=== PATIENT | female | born 1935 | race Caucasian/White ===

== ENCOUNTER 2017-02-18 16:55 | Inpatient (IN) | payer MEDICARE, MEDICAID ==
[~2017-02-18] VITALS: Ht 170.2 cm; Wt 61.2 kg
[2017-02-18 16:40] VITALS: BP 162/64
--- NOTE | 2017-02-18 16:45 | NUR ---
RECEIVED PATIENT 81 YEARS OLD FEMALE FROM [facility] BY [facility]/AMBULANCE WITH BILATERAL WRIST RESTRAINTS PATIENT IS AWAKE CONFUSED AND DISORIENTED REFUSED TO SIGN ANY OF THE ADMISSION PAPERS ORIENTED TO THE UNIT AND ITS PROTOCOL.PATIENT SEATED ON THE CHAIR DR MAYER WAS CALLED BY THE RADIO OFFICER RE THE PRN PSYCH ORDERS AND DOCUMENTED.CALLED PATIENTS SON LINETTE AND LEFT HIM A MESSAGE RE PATIENT IS HERE.
--- NOTE | 2017-02-18 17:30 | NUR ---
LINETTE RETURNED CALL AND WAS NOTIFIED THAT HIS MOM IS HERE AND HE STATED WILL CALL HIS MOM LATER TO TALK WITH HER.PATIENT IS MORE COOPERATIVE WITH THE ADMISSION NURSE ANSWERING QUESTIONS EATING DINNER AND ADMISSION PROCESS REMAINS IN PROGRESS AND WILL CONTINUE TO OBSERVE AND PROVIDE SAFE AND THERAPEUTIC ENVIRONMENT AT ALL TIMES.
[2017-02-18] MEDS ORDERED: MAGNESIUM HYDROXIDE 30 ML LIQUID UDC PO PRN (17:45)
[2017-02-18] MEDS ORDERED: MAG HYDROX/AL HYDROX/SIMETH 30 ML LIQUID UDC PO PRN (17:45)
[2017-02-18] MEDS ORDERED: LISI-603 PO (17:52)
[2017-02-18] MEDS ORDERED: FERR325T6 PO (17:52)
[2017-02-18] MEDS ORDERED: OXYB5TAB PO (17:52)
[2017-02-18] MEDS ORDERED: ALBU2.5V38 NEB ×2 (17:52→23:58)
[2017-02-18] MEDS ORDERED: METO25TA6 PO (17:52)
[2017-02-18] MEDS ORDERED: ASPI-605 PO (17:52)
[2017-02-18] MEDS ORDERED: CLOP75TA15 PO (17:52)
[2017-02-18] MEDS ORDERED: ALBUTEROL SULFATE 2.5 MG/3 ML NEBU NEB PRN (20:15)
[2017-02-18 20:46] VITALS: BP 153/78
[2017-02-18] MEDS ORDERED: NIFE90TA2 PO (20:54)
[2017-02-18] MEDS ORDERED: MIRT15TA PO (20:54)
[2017-02-18] MEDS ORDERED: SITA100T PO (20:54)
[2017-02-18] MEDS ORDERED: FERR325T28 PO (20:54)
[2017-02-18] MEDS ORDERED: OXYB5TAB11 PO (20:54)
[2017-02-18] MEDS ORDERED: CLON0.1T PO (20:54)
[2017-02-18] MEDS ORDERED: CLONIDINE HCL 0.1 MG TABLET PO PRN (21:15)
[2017-02-18] MEDS ORDERED: FAMO20TA41 PO (21:18)
[2017-02-18] MEDS: TEMAZEPAM 7.5 MG CAPSULE PO PRN (21:26)
[2017-02-18] MEDS: ACETAMINOPHEN 325 MG TABLET PO PRN (21:26)
[2017-02-18] MEDS: METOPROLOL TARTRATE 25 MG TABLET PO SCH (21:27)
[2017-02-18] MEDS: LISINOPRIL 20 MG TABLET PO SCH (21:27)
--- NOTE | 2017-02-18 21:30 | NUR ---
Patient was given Restoril 7.5mg PO PRN for insomnia and Tylenol 650mg PO PRN for pain. we will continue to monitor
--- NOTE | 2017-02-18 22:00 | NUR ---
patient noted crying in her bed. she stated that she is feelings sad because she is not supposed to be here, but in [place]. She also denies being aggressive toward a nurse staff from [facility]. Verbal redirection was given. we will continue to monitor.
[2017-02-18] MEDS: LORAZEPAM 0.5 MG TABLET PO PRN (23:30)
--- NOTE | 2017-02-18 23:30 | NUR ---
patient continue c/o unable to sleep. She was also noted with anxious mood. Ativan 0.5mg PO PRN was given for anxiety. verbal redirection was given. we will continue to monitor.
[2017-02-18] MEDS ORDERED: ZOLP5TAB2 PO (23:58)
[2017-02-18] MEDS ORDERED: CLON0.5T PO (23:58)
[2017-02-18] MEDS ORDERED: BISA10SU61 RC (23:58)
[2017-02-18] MEDS ORDERED: NA P133E RC (23:58)
[2017-02-19] MEDS: ACETAMINOPHEN 325 MG TABLET PO PRN (03:48)
[2017-02-19 07:30] VITALS: BP 162/87
[2017-02-19] MEDS ORDERED: BISACODYL 10 MG SUPP.RECT RC PRN (07:30)
[2017-02-19] MEDS ORDERED: FLEET ENEMA 133 ML BOTTLE RC PRN (07:30)
[2017-02-19] MEDS: CLOPIDOGREL 75 MG TABLET PO SCH (08:51)
[2017-02-19] MEDS: OXYBUTYNIN CHLORIDE 5 MG TABLET PO SCH ×2 (08:51→17:04)
[2017-02-19] MEDS: ASPIRIN EC 81 MG TABLET.DR PO SCH (08:51)
[2017-02-19] MEDS: LISINOPRIL 20 MG TABLET PO SCH (08:51)
[2017-02-19] MEDS: METOPROLOL TARTRATE 25 MG TABLET PO SCH ×2 (08:52→20:12)
[2017-02-19] MEDS: LINAGLIPTIN 5 MG TABLET PO SCH (08:53)
[2017-02-19] MEDS ORDERED: OXYBUTYNIN XL 5 MG TABSR PO SCH (09:00)
[2017-02-19] MEDS: FERROUS SULFATE 325 MG TABEC PO SCH ×2 (09:00→17:00)
[2017-02-19] MEDS: NIFEdipine XL 90 MG TABSR PO SCH (09:00)
[2017-02-19] MEDS ORDERED: FERROUS SULFATE 325 MG TABEC PO SCH (09:00)
[2017-02-19 09:08] LABS: CREATININE 2.5 mg/dL (0.6-1.3)
--- NOTE | 2017-02-19 11:49 | NUR ---
Initial DC Plan: Patient arrived from [facility] [[address] [place] [address]; [phone]]. SW will follow up with facility to confirm pt will be accepted back upon discharge. SW will follow up with MD, patient, and pt's family to discuss appropriate discharge plans. SW will form a safe and proper discharge.
[2017-02-19 11:54] LABS: *BILIRUBIN,URIN NEGATIVE (NEGATIVE); *BLOOD, URINE Trace-lysed (NEGATIVE); *CLARITY,URINE CLEAR (CLEAR); *COLOR,URINE LIGHT YELLOW (YELLOW); *KETONES,URINE NEGATIVE (NEGATIVE); *PROTEIN,URINE 2+ (NEGATIVE); *UROBILINOGEN,URINE 0.2 E.U./dl (NORMAL); LEUKOCYTE ESTERASE ,URINE TRACE (NEGATIVE); NITRITE, URINE NEGATIVE (NEGATIVE); UGLUCOSE NEGATIVE (NEGATIVE)
[2017-02-19] MEDS: AMLODIPINE 5 MG TABLET PO SCH (12:00)
[2017-02-19] MEDS ORDERED: SULFAMETH/TRIMETH 800/160 MG TABLET PO SCH (12:00)
[2017-02-19 12:08] LABS: BACTERIA,URINE MODERATE /HPF (NONE SEEN); SQUAMOUS EPITHELIAL CELL,UR FEW /HPF (NONE SEEN); WBC,URINE 20-50 /HPF (0-3)
[2017-02-19] MEDS ORDERED: HYDROCODONE/APAP 5-325MG TABLET PO PRN ×2 (12:15)
[2017-02-19 12:55] LABS: CARBON DIOXIDE 23 mmol/L (21-32); CHLORIDE 106 mmol/L (98-107); CREATININE 2.4 mg/dL (0.6-1.3); GLUCOSE 102 mg/dL (74-106); POTASSIUM 4.2 mmol/L (3.5-5.1); UREA NITROGEN, BLOOD 45 mg/dL (7-18)
[2017-02-19] MEDS: SULFAMETH/TRIMETH 800/160 MG TABLET PO SCH ×2 (12:58→20:18)
[2017-02-19] MEDS: hydrALAZINE HCL 10 MG TABLET PO SCH ×2 (13:06→22:00)
[2017-02-19] MEDS: ALBUTEROL SULFATE 2.5 MG/3 ML NEBU NEB SCH ×2 (13:30→18:49)
[2017-02-19 15:00] VITALS: BP 149/88
[2017-02-19 20:40] VITALS: BP 159/76
[2017-02-19] MEDS ORDERED: ARIPIPRAZOLE 2 MG TABLET PO SCH (21:00)
[2017-02-19] MEDS ORDERED: MIRTAZAPINE 15 MG TABLET PO SCH (21:00)
--- NOTE | 2017-02-19 22:00 | NUR ---
received to care, lying in bed, isolative, but pleasant upon approach. compliant with most medications, except bactrim, for UTI, and her 2199 dose, of hydralazine. potential risks of noncompliance was discussed, but she stated, "good. maybe i will ", although she denies SI, or desire to harm self, at this time. as of 2199, she appears to be asleep. in bed. monitored closely for safety. no distress noted. will continue to monitor closely.
[2017-02-20] MEDS: ALBUTEROL SULFATE 2.5 MG/3 ML NEBU NEB SCH ×4 (00:42→18:45)
[2017-02-20] MEDS: hydrALAZINE HCL 10 MG TABLET PO SCH ×3 (06:00→21:07)
--- NOTE | 2017-02-20 06:00 | NUR ---
slept 7.5 hours, total. remains in bed. refused AM hydralazine. states she wants to sleep. no distress noted. will continue to monitor closely.
[2017-02-20 07:30] VITALS: BP 157/96
[2017-02-20] MEDS: FAMOTIDINE 20 MG TABLET PO SCH (07:30)
[2017-02-20] MEDS ORDERED: FAMOTIDINE 20 MG TABLET PO SCH (07:30)
[2017-02-20 07:53] LABS: ALANINE AMINOTRANSFERASE 10 U/L (14-59); ALKALINE PHOSPHATASE 55 U/L (50-136); ASPARTATE AMINOTRANSFERASE 13 U/L (15-37); BILIRUBIN,TOTAL 0.5 mg/dL (0.2-1.0); CARBON DIOXIDE 22 mmol/L (21-32); CHLORIDE 107 mmol/L (98-107); CREATINE KINASE, TOTAL 28 U/L (26-192); CREATININE 2.4 mg/dL (0.6-1.3); GLUCOSE 96 mg/dL (74-106); MAGNESIUM 2.1 mg/dL (1.8-2.4); PHOSPHOROUS 4.7 mg/dL (2.5-4.9); POTASSIUM 4.2 mmol/L (3.5-5.1); TOTAL PROTEIN, SERUM 7.4 g/dL (6.4-8.2); UREA NITROGEN, BLOOD 40 mg/dL (7-18)
[2017-02-20 07:54] LABS: BASOPHILS % (AUTO) 0.9 % (0.0-2.0); EOSINOPHILS # (AUTO) 0.2 K/uL (0.0-0.7); EOSINOPHILS % (AUTO) 4.9 % (0.0-7.0); HEMATOCRIT 29.3 % (31.2-41.9); HEMOGLOBIN 9.9 g/dL (10.9-14.3); LYMPHOCYTES # (AUTO) 0.7 K/uL (20.0-40.0); LYMPHOCYTES % (AUTO) 16.3 % (20.5-51.5); MEAN CORPUSCULAR HEMOGLOBIN 27.2 uug (24.7-32.8); MEAN CORPUSCULAR HGB CONC 34 g/dL (32.3-35.6); MEAN CORPUSCULAR VOLUME 80.7 fL (75.5-95.3); MONOCYTES # (AUTO) 0.5 K/uL (2.0-10.0); MONOCYTES % (AUTO) 10.9 % (0.0-11.0); NEUTROPHILS # (AUTO) 3.1 K/uL (1.8-8.9); PLATELET COUNT (AUTO) 175 K/uL (179-408); RED BLOOD CELL COUNT(AUTO) 3.63 MIL/uL (3.63-4.92); WHITE BLOOD COUNT (AUTO) 4.6 K/uL (3.8-11.8)
[2017-02-20] MEDS: OXYBUTYNIN CHLORIDE 5 MG TABLET PO SCH ×2 (09:00→17:00)
[2017-02-20] MEDS: METOPROLOL TARTRATE 25 MG TABLET PO SCH ×2 (09:00→21:00)
[2017-02-20] MEDS: FERROUS SULFATE 325 MG TABEC PO SCH ×2 (09:00→17:00)
[2017-02-20] MEDS: SULFAMETH/TRIMETH 800/160 MG TABLET PO SCH ×2 (09:00→21:00)
[2017-02-20] MEDS: ASPIRIN EC 81 MG TABLET.DR PO SCH (09:00)
[2017-02-20] MEDS: AMLODIPINE 5 MG TABLET PO SCH (09:00)
[2017-02-20] MEDS: CLOPIDOGREL 75 MG TABLET PO SCH (09:00)
[2017-02-20] MEDS: LINAGLIPTIN 5 MG TABLET PO SCH (09:00)
[2017-02-20] MEDS: NIFEdipine XL 90 MG TABSR PO SCH (09:00)
--- NOTE | 2017-02-20 09:07 | NUR ---
offered am medications to patient but strongly refused dispite of the explanations and stated " I don't want any medications... I don't want any medications."
[2017-02-20 16:24] VITALS: BP 158/87
--- NOTE | 2017-02-20 16:35 | NUR ---
PT HAS BEEN VERBALLY INSULTING AND THREATENED A STAFF MEMBER. PTS ROOMATE TOLD HER TO STOP THREATENING AND INSULTING STAFF AND PT ATTEMPTED TO THROW FULL WATER BOTTLES AT ROOMATES AND STAFF, AND IS ATTEMPTING TO STRIKE OUT. PT NOT REDIRECTABLE, REFUSING PRNS. DR MARTINEZ CALLED FOR ORDERS
[2017-02-20] MEDS ORDERED: OLANZAPINE 10 MG VIAL IM STA (16:36)
[2017-02-20] MEDS: MIRTAZAPINE 15 MG TABLET PO SCH (21:00)
[2017-02-20] MEDS: ARIPIPRAZOLE 5 MG TABLET PO SCH (21:00)
[2017-02-20] MEDS ORDERED: ARIPIPRAZOLE 2 MG TABLET PO SCH (21:00)
--- NOTE | 2017-02-20 22:00 | NUR ---
Pt INITIALLY STATED SHE WOULD ONLY TAKE HER PSYCH MEDS. RN SCANNED THE ABILIFY AND REMERON AND OPENED THE PACKAGES TO ADMINISTER. Pt THEN REFUSED THE PSYCH MEDS AFTER THEY WERE OPENED. HYDRALAZINE, LOPRESSOR, AND BACTRIM MEDICATIONS RETURNED.
[2017-02-21] MEDS: ALBUTEROL SULFATE 2.5 MG/3 ML NEBU NEB SCH ×3 (01:02→18:54)
[2017-02-21] MEDS: hydrALAZINE HCL 10 MG TABLET PO SCH ×3 (06:00→22:00)
--- NOTE | 2017-02-21 06:28 | NUR ---
Pt REFUSED 0600 VS AND HYDRALAZINE. Pt REMAINS IRRITABLE AND ANGRY.
--- NOTE | 2017-02-21 06:31 | NUR ---
SLEPT 8 HOURS, NO COMBATIVE BEHAVIORS.
[2017-02-21] MEDS: FAMOTIDINE 20 MG TABLET PO SCH (07:30)
--- NOTE | 2017-02-21 08:20 | NUR ---
PT THREW TRAY OF FOOD ACROSS ROOM AT STAFF, OPENED BOTTLE OF LOTION AND DUMPED ALL OVER FLOOR, THREW FULL PITCHER OF WATER AT STAFF AND THEN ATTEMPTED TO GRAB BEDSIDE TABLE. PT IS VERBALLY ABUSIVE AND INSULTIVE TOWARDS STAFF, THREATENING HARM TO STAFF. PT IS REFUSING ALL SCHEDULED AM MEDICATIONS AND REFUSING PRN MEDICATION. PT OUT OF CONTROL, NOT REDIRECTABLE, CALLED DR DAVIS FOR ORDERS.
[2017-02-21] MEDS ORDERED: OLANZAPINE 10 MG VIAL IM ONE (08:30)
[2017-02-21] MEDS: ASPIRIN EC 81 MG TABLET.DR PO SCH (08:50)
[2017-02-21] MEDS: OXYBUTYNIN CHLORIDE 5 MG TABLET PO SCH ×2 (08:50→17:00)
[2017-02-21] MEDS: SULFAMETH/TRIMETH 800/160 MG TABLET PO SCH ×2 (08:50→20:22)
[2017-02-21] MEDS: METOPROLOL TARTRATE 25 MG TABLET PO SCH ×2 (08:50→20:22)
[2017-02-21] MEDS: FERROUS SULFATE 325 MG TABEC PO SCH ×2 (08:50→17:00)
[2017-02-21] MEDS: AMLODIPINE 5 MG TABLET PO SCH (08:51)
[2017-02-21] MEDS: NIFEdipine XL 90 MG TABSR PO SCH (08:51)
[2017-02-21] MEDS: LINAGLIPTIN 5 MG TABLET PO SCH (08:51)
[2017-02-21] MEDS: CLOPIDOGREL 75 MG TABLET PO SCH (08:51)
[2017-02-21] MEDS ORDERED: CLONIDINE-TTS 1 PATCH TD SCH (15:00)
--- NOTE | 2017-02-21 16:06 | NUR ---
PATIENT REFUSED MEDICATIONS AND V/S CHECK.
[2017-02-21] MEDS: ARIPIPRAZOLE 5 MG TABLET PO SCH (20:22)
[2017-02-21] MEDS: MIRTAZAPINE 15 MG TABLET PO SCH (20:22)
--- NOTE | 2017-02-21 22:01 | NUR ---
Pt REFUSING ALL CARE, TREATMENT, VS AND MEDICATIONS. WILL ENDORSE TO DAY SHIFT RN TO NOTIFY MD AND PSYCHIATRIST IN A.M.
[2017-02-22] MEDS: ALBUTEROL SULFATE 2.5 MG/3 ML NEBU NEB SCH ×4 (01:16→18:54)
[2017-02-22] MEDS: hydrALAZINE HCL 10 MG TABLET PO SCH ×3 (06:00→22:17)
--- NOTE | 2017-02-22 06:42 | NUR ---
Pt REFUSED AM LABS, VEGETABLE THINNER NOTIFIED.
--- NOTE | 2017-02-22 06:43 | NUR ---
Pt CONTINUES TO REFUSE ALL MEDS, CARE, AND TREATMENT INCLUDING VS. Pt REFUSES ANY WATER, JUICE OR FOOD OFFERED TO HER THIS SHIFT. Pt's BUN IS 40, THOUGH TRENDING DOWN FROM 45. Cr IS 2.4. WILL ENDORSE TO DAY SHIFT RN TO FOLLOW UP WITH MD AND PSYCHIATRIST. Pt IS ANGRY, IRRITABLE, LABILE, WITHDRAWN, RECLUSIVE, AND ISOLATIVE.
[2017-02-22] MEDS: FAMOTIDINE 20 MG TABLET PO SCH (07:30)
[2017-02-22] MEDS: METOPROLOL TARTRATE 25 MG TABLET PO SCH ×2 (09:00→20:10)
[2017-02-22] MEDS: NIFEdipine XL 90 MG TABSR PO SCH (09:00)
[2017-02-22] MEDS: LINAGLIPTIN 5 MG TABLET PO SCH (09:00)
[2017-02-22] MEDS: ASPIRIN EC 81 MG TABLET.DR PO SCH (09:00)
[2017-02-22] MEDS: FERROUS SULFATE 325 MG TABEC PO SCH ×2 (09:00→17:00)
[2017-02-22] MEDS: SULFAMETH/TRIMETH 800/160 MG TABLET PO SCH ×2 (09:00→20:04)
[2017-02-22] MEDS: AMLODIPINE 5 MG TABLET PO SCH (09:00)
[2017-02-22] MEDS: OXYBUTYNIN CHLORIDE 5 MG TABLET PO SCH ×2 (09:00→17:00)
[2017-02-22] MEDS: CLOPIDOGREL 75 MG TABLET PO SCH (09:00)
[2017-02-22] MEDS: MIRTAZAPINE 15 MG TABLET PO SCH (20:04)
[2017-02-22] MEDS: ARIPIPRAZOLE 5 MG TABLET PO SCH (20:04)
[2017-02-22 20:26] VITALS: BP 189/89
[2017-02-22] MEDS: TEMAZEPAM 7.5 MG CAPSULE PO PRN (23:18)
[2017-02-23] MEDS: ALBUTEROL SULFATE 2.5 MG/3 ML NEBU NEB SCH ×4 (01:30→18:42)
[2017-02-23] MEDS: FAMOTIDINE 20 MG TABLET PO SCH (06:45)
[2017-02-23] MEDS: hydrALAZINE HCL 10 MG TABLET PO SCH (06:47)
[2017-02-23 07:05] LABS: BASOPHILS % (AUTO) 0.4 % (0.0-2.0); EOSINOPHILS # (AUTO) 0.3 K/uL (0.0-0.7); EOSINOPHILS % (AUTO) 4.3 % (0.0-7.0); HEMATOCRIT 34.4 % (37-47); HEMOGLOBIN 11.3 G/DL (12.0-16.0); LYMPHOCYTES # (AUTO) 1.1 K/UL (0.8-4.8); MEAN CORPUSCULAR HEMOGLOBIN 26.7 UUG (27.0-31.0); MEAN CORPUSCULAR HGB CONC 33 g/dL (32.0-37.0); MEAN CORPUSCULAR VOLUME 81.4 FL (81.0-99.0); MONOCYTES # (AUTO) 1.2 K/UL (0.1-1.30); MONOCYTES % (AUTO) 15.1 % (0.0-11.0); NEUTROPHILS % (AUTO) 66.2 % (38.5-71.5); PLATELET COUNT (AUTO) 194 K/UL (150-450); RED BLOOD CELL COUNT(AUTO) 4.22 MIL/UL (4.2-5.4); WHITE BLOOD COUNT (AUTO) 7.6 K/UL (4.0-11.2)
[2017-02-23 07:13] LABS: CARBON DIOXIDE 25 mmol/L (21-32); CHLORIDE 104 mmol/L (98-107); CREATININE 2.8 mg/dL (0.6-1.3); GLUCOSE 207 mg/dL (74-106); PHOSPHOROUS 3.8 mg/dL (2.5-4.9); POTASSIUM 3.8 mmol/L (3.5-5.1); UREA NITROGEN, BLOOD 44 mg/dL (7-18)
[2017-02-23 07:30] VITALS: BP 151/60
[2017-02-23 08:08] LABS: *CREATININE,URINE 66.8 mg/dL (30-125); *URINE TOTAL PROTEIN RANDOM 99.2 mg/dL (<150/24HR)
--- NOTE | 2017-02-23 08:18 | NUR ---
Discharge Planning Note: [facility] left a voicemail for admissions at [facility] [ ] to confirm pt can return to facility upon discharge. RICH will attempt follow up with facility later today.
[2017-02-23] MEDS: LINAGLIPTIN 5 MG TABLET PO SCH (08:36)
[2017-02-23] MEDS: ASPIRIN EC 81 MG TABLET.DR PO SCH (08:37)
[2017-02-23] MEDS: SULFAMETH/TRIMETH 800/160 MG TABLET PO SCH ×2 (08:37→20:38)
[2017-02-23] MEDS: OXYBUTYNIN CHLORIDE 5 MG TABLET PO SCH ×2 (08:37→17:54)
[2017-02-23] MEDS: CLOPIDOGREL 75 MG TABLET PO SCH (08:38)
[2017-02-23] MEDS: AMLODIPINE 5 MG TABLET PO SCH (08:38)
[2017-02-23] MEDS: FERROUS SULFATE 325 MG TABEC PO SCH ×2 (08:39→17:00)
[2017-02-23] MEDS: METOPROLOL TARTRATE 25 MG TABLET PO SCH ×2 (08:39→20:39)
[2017-02-23] MEDS: NIFEdipine XL 90 MG TABSR PO SCH (08:40)
[2017-02-23 09:07] LABS: ALBUMIN 3.4 g/dL (2.9-4.4); ALPHA-1-GLOBULIN 0.3 g/dL (0.0-0.4); ALPHA-2-GLOBULIN 0.8 g/dL (0.4-1.0); BETA GLOBULIN 0.8 g/dL (0.7-1.3); GAMMA GLOBULIN 1.4 g/dL (0.4-1.8); GLOBULIN, TOTAL 3.4 g/dL (2.2-3.9); M-SPIKE 0.2 g/dL (Not Observed)
[2017-02-23 10:43] LABS: BAND % (MANUAL) 3 % (0-10); BASOPHILS % (MANUAL) 0 % (0-2); EOSINOPHILS % (MANUAL) 6 % (0-8); LYMPHOCYTES % (MANUAL) 19 % (20-40); MONOCYTES % (MANUAL) 11 % (2-10); NEUTROPHILS % (MANUAL) 61 % (42-75)
[2017-02-23] MEDS ORDERED: hydrALAZINE HCL 10 MG TABLET PO PRN (13:15)
[2017-02-23 17:04] VITALS: BP 137/69
[2017-02-23 20:21] VITALS: BP 153/77
[2017-02-23] MEDS: LORAZEPAM 0.5 MG TABLET PO PRN (20:38)
[2017-02-23] MEDS: MIRTAZAPINE 15 MG TABLET PO SCH (21:54)
[2017-02-23] MEDS: ARIPIPRAZOLE 5 MG TABLET PO SCH (21:54)
[2017-02-23] MEDS: TEMAZEPAM 7.5 MG CAPSULE PO PRN (23:49)
[2017-02-24] MEDS: ALBUTEROL SULFATE 2.5 MG/3 ML NEBU NEB SCH ×4 (00:52→18:50)
--- NOTE | 2017-02-24 06:18 | NUR ---
Pt is calm, cooperative, pleasant upon approach. Pt denies suicidal ideation, homicidal ideation, and pt contracts for safety inside and outside of the hospital. Pt is compliant with medication and allows care. Pt slept 9 hours and refused her shower.
[2017-02-24 08:01] VITALS: BP 153/69
[2017-02-24] MEDS: CLOPIDOGREL 75 MG TABLET PO SCH (08:29)
[2017-02-24] MEDS: ASPIRIN EC 81 MG TABLET.DR PO SCH (08:29)
[2017-02-24] MEDS: OXYBUTYNIN CHLORIDE 5 MG TABLET PO SCH ×2 (08:29→16:41)
[2017-02-24] MEDS: LINAGLIPTIN 5 MG TABLET PO SCH (08:29)
[2017-02-24] MEDS: SULFAMETH/TRIMETH 800/160 MG TABLET PO SCH ×2 (08:30→21:08)
[2017-02-24] MEDS: FAMOTIDINE 20 MG TABLET PO SCH (08:30)
[2017-02-24] MEDS: METOPROLOL TARTRATE 25 MG TABLET PO SCH ×2 (08:30→21:08)
[2017-02-24] MEDS: AMLODIPINE 5 MG TABLET PO SCH (08:31)
[2017-02-24] MEDS: NIFEdipine XL 90 MG TABSR PO SCH (08:31)
[2017-02-24] MEDS: FERROUS SULFATE 325 MG TABEC PO SCH ×2 (08:31→16:48)
[2017-02-24 16:19] VITALS: BP 117/55
[2017-02-24 20:00] VITALS: BP 135/77
[2017-02-24] MEDS: MIRTAZAPINE 15 MG TABLET PO SCH (21:07)
[2017-02-24] MEDS: ARIPIPRAZOLE 5 MG TABLET PO SCH (21:07)
--- NOTE | 2017-02-24 22:00 | NUR ---
received to care, sitting in her room, isolative, but pleasant upon approach. compliant with medications and staff direction. as of 2199, she remains awake. no distress noted. will continue to monitor closely.
[2017-02-24] MEDS: TEMAZEPAM 7.5 MG CAPSULE PO PRN (23:16)
--- NOTE | 2017-02-24 23:16 | NUR ---
PRN restoril, given for insomnia.
--- NOTE | 2017-02-25 00:30 | NUR ---
appears to be asleep. no distress noted. will continue to monitor closely.
[2017-02-25] MEDS: ALBUTEROL SULFATE 2.5 MG/3 ML NEBU NEB SCH ×4 (00:44→20:21)
--- NOTE | 2017-02-25 06:00 | NUR ---
slept 5.5 hours, total. continues to sleep. no distress noted.
[2017-02-25 07:26] LABS: BASOPHILS # (AUTO) 0.1 K/uL (0.0-8.0); EOSINOPHILS # (AUTO) 0.3 K/uL (0.0-0.7); EOSINOPHILS % (AUTO) 5.4 % (0.0-7.0); HEMATOCRIT 31.3 % (37-47); HEMOGLOBIN 10.1 G/DL (12.0-16.0); LYMPHOCYTES # (AUTO) 0.6 K/UL (0.8-4.8); LYMPHOCYTES % (AUTO) 12.2 % (20.5-51.5); MEAN CORPUSCULAR HEMOGLOBIN 26.6 UUG (27.0-31.0); MEAN CORPUSCULAR HGB CONC 32 g/dL (32.0-37.0); MEAN CORPUSCULAR VOLUME 82.4 FL (81.0-99.0); MONOCYTES # (AUTO) 0.7 K/UL (0.1-1.30); MONOCYTES % (AUTO) 12.5 % (0.0-11.0); NEUTROPHILS # (AUTO) 3.6 K/UL (1.8-8.9); NEUTROPHILS % (AUTO) 68.9 % (38.5-71.5); PLATELET COUNT (AUTO) 169 K/UL (150-450); WHITE BLOOD COUNT (AUTO) 5.3 K/UL (4.0-11.2)
[2017-02-25 07:30] VITALS: BP 122/59
[2017-02-25 07:39] LABS: CARBON DIOXIDE 25 mmol/L (21-32); CHLORIDE 108 mmol/L (98-107); CREATININE 2.8 mg/dL (0.6-1.3); GLUCOSE 153 mg/dL (74-106); UREA NITROGEN, BLOOD 48 mg/dL (7-18)
[2017-02-25] MEDS: CLOPIDOGREL 75 MG TABLET PO SCH (08:56)
[2017-02-25] MEDS: ASPIRIN EC 81 MG TABLET.DR PO SCH (08:57)
[2017-02-25] MEDS: LINAGLIPTIN 5 MG TABLET PO SCH (08:57)
[2017-02-25] MEDS: OXYBUTYNIN CHLORIDE 5 MG TABLET PO SCH ×2 (08:57→17:27)
[2017-02-25] MEDS: SULFAMETH/TRIMETH 800/160 MG TABLET PO SCH ×2 (08:57→20:37)
[2017-02-25] MEDS: METOPROLOL TARTRATE 25 MG TABLET PO SCH ×2 (08:58→20:38)
[2017-02-25] MEDS: FAMOTIDINE 20 MG TABLET PO SCH (08:58)
[2017-02-25] MEDS: ARIPIPRAZOLE 5 MG TABLET PO SCH ×2 (09:00→20:37)
[2017-02-25] MEDS: AMLODIPINE 5 MG TABLET PO SCH (09:00)
[2017-02-25] MEDS: FERROUS SULFATE 325 MG TABEC PO SCH ×2 (09:00→17:00)
[2017-02-25] MEDS: NIFEdipine XL 90 MG TABSR PO SCH (09:00)
[2017-02-25 16:00] VITALS: BP 150/72
[2017-02-25 19:47] VITALS: BP 131/62
[2017-02-25] MEDS: MIRTAZAPINE 15 MG TABLET PO SCH (20:37)
--- NOTE | 2017-02-25 22:00 | NUR ---
received to care, sitting in her room, isolative, but pleasant upon approach. interacts well with female peers. compliant with medications and staff direction. as of 2199, she remains awake. no distress noted. will continue to monitor closely.
[2017-02-25] MEDS: TEMAZEPAM 7.5 MG CAPSULE PO PRN (22:40)
--- NOTE | 2017-02-25 22:40 | NUR ---
PRN restoril, given for insomnia.
--- NOTE | 2017-02-25 23:45 | NUR ---
appears to be asleep. no distress noted.
[2017-02-26] MEDS: ALBUTEROL SULFATE 2.5 MG/3 ML NEBU NEB SCH ×4 (00:30→20:18)
--- NOTE | 2017-02-26 06:00 | NUR ---
slept 6.0 hours, total.
[2017-02-26 07:30] VITALS: BP 98/66
[2017-02-26] MEDS: SULFAMETH/TRIMETH 800/160 MG TABLET PO SCH ×2 (08:27→21:06)
[2017-02-26] MEDS: ASPIRIN EC 81 MG TABLET.DR PO SCH (08:27)
[2017-02-26] MEDS: CLOPIDOGREL 75 MG TABLET PO SCH (08:27)
[2017-02-26] MEDS: ARIPIPRAZOLE 5 MG TABLET PO SCH ×2 (08:28→21:06)
[2017-02-26] MEDS: FAMOTIDINE 20 MG TABLET PO SCH (08:28)
[2017-02-26] MEDS: OXYBUTYNIN CHLORIDE 5 MG TABLET PO SCH ×2 (08:28→17:01)
[2017-02-26] MEDS: FERROUS SULFATE 325 MG TABEC PO SCH ×2 (08:29→17:00)
[2017-02-26] MEDS: NIFEdipine XL 90 MG TABSR PO SCH (09:00)
[2017-02-26] MEDS: METOPROLOL TARTRATE 25 MG TABLET PO SCH ×2 (10:09→21:07)
[2017-02-26] MEDS: AMLODIPINE 5 MG TABLET PO SCH (10:10)
[2017-02-26] MEDS: LINAGLIPTIN 5 MG TABLET PO SCH (10:13)
[2017-02-26 16:00] VITALS: BP 115/51
[2017-02-26 20:00] VITALS: BP 145/75
[2017-02-26] MEDS: MIRTAZAPINE 15 MG TABLET PO SCH (21:06)
[2017-02-27] MEDS: ALBUTEROL SULFATE 2.5 MG/3 ML NEBU NEB SCH ×2 (01:13→07:13)
[2017-02-27 07:30] VITALS: BP 11/63
--- NOTE | 2017-02-27 08:48 | NUR ---
DC Plan: Patient will be discharged to [facility] [[address] [place] [address]; ] via private transportation. RICH spoke with patients son/DPOA Donovan Leary [[phone]] who stated he would like to pick up man patient from the hospital and provide transportation to [facility]. Patients son stated he will pick up man patient at 12pm. RICH spoke with Ford at [facility] to confirm discharge plans. Pt will follow up with Dr. Salgado [Psychiatrist] and Dr. Tierney [[employer]pre[employer]].
[2017-02-27] MEDS: ASPIRIN EC 81 MG TABLET.DR PO SCH (08:58)
[2017-02-27] MEDS: SULFAMETH/TRIMETH 800/160 MG TABLET PO SCH (08:58)
[2017-02-27] MEDS: ARIPIPRAZOLE 5 MG TABLET PO SCH (08:59)
[2017-02-27] MEDS: OXYBUTYNIN CHLORIDE 5 MG TABLET PO SCH (08:59)
[2017-02-27] MEDS: FERROUS SULFATE 325 MG TABEC PO SCH (09:00)
[2017-02-27] MEDS: ACETAMINOPHEN 325 MG TABLET PO PRN (09:00)
[2017-02-27] MEDS: FAMOTIDINE 20 MG TABLET PO SCH (09:00)
[2017-02-27] MEDS: NIFEdipine XL 90 MG TABSR PO SCH (09:00)
[2017-02-27] MEDS: CLOPIDOGREL 75 MG TABLET PO SCH (09:00)
[2017-02-27] MEDS: AMLODIPINE 5 MG TABLET PO SCH (09:01)
[2017-02-27 09:02] VITALS: BP 111/63
[2017-02-27] MEDS: METOPROLOL TARTRATE 25 MG TABLET PO SCH (09:02)
[2017-02-27] MEDS: LINAGLIPTIN 5 MG TABLET PO SCH (09:06)
--- NOTE | 2017-02-27 14:00 | NUR ---
1230 called [facility] facility spoke with Jeremy Miller RN, report given regarding patient will be discharged back to facility today. Son will bring patient to facility.RN informed about patient mental/ medical condition, stable. 1330 Patient son, Donovan picked up patient and transported to the facility mentioned above.
== END 2017-02-27 13:30 | DRG 885 ==
LOC: GPS 16:55
PROVIDERS: ADMIT Psychiatry & Neurology Psychosomatic Medicine; ATTEND Internal Medicine
DX: F31.64 Bipolar disorder, current episode mixed, severe, with psychotic features (principal); N18.3 Chronic kidney disease, stage 3 (moderate); N17.9 Acute kidney failure, unspecified; J44.9 Chronic obstructive pulmonary disease, unspecified; N12 Tubulo-interstitial nephritis, not specified as acute or chronic; D63.8 Anemia in other chronic diseases classified elsewhere; I12.9 Hypertensive chronic kidney disease with stage 1 through stage 4 chronic kidney disease, or unspecified chronic kidney disease; I25.10 Atherosclerotic heart disease of native coronary artery without angina pectoris
CPT/HCPCS: 36415; 83735; 83970; 84100; 84155; 84156; 84165; 84300; 85025; 87086; 94640; 94664; J2358